=== PATIENT | male | born 1990 | race Caucasian/White ===

== ENCOUNTER 2019-02-15 09:48 | Day surgery (SDC) | payer OTHER ==
[~2019-02-15] VITALS: Ht 188 cm; Wt 93.0 kg
[~2019-02-15 09:48] MED LIST: BUPIVAcaine/PF 2.5mg/ml (0.25%) 10ml vial ONE; LIDOcaine 1% 30ml preserv. free vial ONE; NO HOME MEDS; cefazolin/dext.iso 2gm/100 ML IV ONE; famotidine 20mg tablet PO ONE; ringers solution, lacted 1,000 ML IV SCH
[2019-02-15] MEDS ORDERED: MIDAZolam 1mg/ml 10ml vial ONE (11:48)
[2019-02-15] MEDS ORDERED: fentaNYL/PF 50MCG/1 ML 2ML syringe ONE (11:48)
[2019-02-15] MEDS ORDERED: ketorolac trometh. 30mg/ml inj. ONE (12:51)
[2019-02-15 12:55] VITALS: BP 123/79
--- NOTE | 2019-02-15 12:55 | NUR ---
Received from OR via , accompanied by Anesthesiologist DR BRAVO and report given by Anesthesiolgist. AWAKENS TO VOICE. VITALS STABLE. DRESSINGS DI. NGHIA PAIN.
[2019-02-15 13:05] VITALS: BP 108/59
[2019-02-15 13:11] VITALS: BP 128/78
[2019-02-15 13:15] VITALS: BP 110/70
[2019-02-15 13:23] VITALS: BP 128/78
[2019-02-15 13:25] VITALS: BP 120/72
--- NOTE | 2019-02-15 13:35 | NUR ---
AWAKE AND ORIENTED. VITALS STABLE. DRESSINGS DI. NGHIA PAIN. HOME WITH FAMILY AT THIS TIME.
== END 2019-02-15 13:35 | disposition home or self-care (01) ==
LOC: PAS 09:48
PROVIDERS: ATTEND Orthopaedic Surgery Hand Surgery
DX: S67.192A Crushing injury of right middle finger, initial encounter (principal); S67.190A Crushing injury of right index finger, initial encounter; Z72.89 Other problems related to lifestyle; X58.XXXA Exposure to other specified factors, initial encounter; Y93.89 Activity, other specified; Y92.89 Other specified places as the place of occurrence of the external cause; Y99.8 Other external cause status; Z88.1 Allergy status to other antibiotic agents
CPT/HCPCS: 26952; A6222; J1885; J2001; J2250; J3010; J3490; J7120; A4618; A6449; A7000